=== PATIENT | female | born 1980 | race Caucasian/White ===

== ENCOUNTER → 2017-08-05 | Outpatient (CLI) | payer BC ==
[~2017-08-05] MED LIST: GADOBENATE DIMEGLUMINE 1 ML IV ONE
--- NOTE | 2017-08-06 11:34 | Diagnostic Imaging Report ---
History: MS seems 2006 Comparison studies: MRI brain and cervical spine 01/31/2017 Technique: Pre contrast brain: Axial and sagittal T2 flair, axial T2, T1 flair, GRE, DWI Post contrast brain: axial and coronal T1 Post contrast cervical spine: Sagittal T1, T2 and Inversion Recovery, axial T1 and T2 Intravenous contrast: 15 cc of MultiHance Findings: Brain: T2 lesion load: Number: Approximately 20-25. Approximately 3 new lesion, one in the right superior frontal gyrus and two in the left superior frontal gyrus juxtacortical white matter. Size: From 0.2 to 0.9 cm the largest one located at the left centrum semiovale ovale Location: 1. Periventricular, deep, subependymal and juxtacortical white matter. 2. Right lateral rishabh T1 hypointense foci: None Enhancing lesions: No enhancing lesion. Resolution of the previously enhancing foci Corpus callosum volume: Normal in size. Appropriate for age. Brain volume: Adequate for patient's age. Additional findings: None Cervical spine: Spinal cord size: Normal in size and configuration. T2 lesion load: No demyelinating plaques. Hypointense foci: None. Enhancing lesions: None Additional findings: Mild canal stenosis and mild bilateral foraminal narrowing at C6-7 secondary to degenerative changes. Partially visualized enlarged left lobe of the thyroid, with multiple T2 hyperintense nodules, the largest one measuring 2.3 cm In transverse diameter, stable IMPRESSION: Brain MRI: 1. Three small new demyelinating foci at the bilateral superior frontal juxtacortical white matter. The remaining demyelinating lesions are grossly stable in size and distribution. 2. No enhancing lesions are seen. Resolution of the previously visualized enhancing foci. Cervical spine: 1. No demyelinating plaque at the cervical spinal cord. No abnormal enhancement 2. Remaining examination is stable Signed by: DR Lior Singletary M.D. on 08/06/2017 11:30 AM
== END ==
LOC: MRI 13:45
PROVIDERS: ATTEND Psychiatry & Neurology Clinical Neurophysiology
DX: G35 Multiple sclerosis (principal)
CPT/HCPCS: 70553; 72156